=== PATIENT | female | born 1960 | race Caucasian/White ===

== ENCOUNTER 2018-02-18 15:06 | Emergency (ER) | payer OTHER, BC ==
[2018-02-18 15:27] LABS: BASOPHIL (%) 0.3 % (0-1); EOSINOPHIL (%) 1.1 % (0-5); EOSINOPHIL COUNT 0.1 K/uL (0-0.3); HEMATOCRIT 34.5 % (36.0-46.0); HEMOGLOBIN 11.9 G/DL (11.9-15.5); IMMATURE GRANULOCYTE (%) 0.3 % (0.0-0.7); LYMPHOCYTE (%) 32.7 % (15-42); LYMPHOCYTE COUNT 2.4 K/uL (1.0-2.8); MCH 31.2 PG (29.0-34.0); MCHC 34.5 G/DL (30.0-36.0); MCV 90.3 FL (83-99); MONOCYTE (%) 7.5 % (3-12); MONOCYTE COUNT 0.6 K/uL (0-0.8); NEUTROPHIL (%) 58.1 % (45-76); NEUTROPHIL COUNT 4.3 K/uL (1.8-6.4); PLATELET COUNT 275 K/uL (156-360); RBC DIS.WIDTH-CV 12.8 % (11.8-14.6); RBC DIS.WIDTH-SD 42.6 % (39-53); RED BLOOD COUNT 3.82 M/uL (3.80-5.20); WHITE BLOOD COUNT 7.3 K/uL (4.1-10.2)
[2018-02-18 15:37] LABS: AMYLASE 75 IU/L (1-118); CHLORIDE 104 mEq/L (99-109); POTASSIUM 3.5 mEq/L (3.7-5.4); SODIUM 140 mEq/L (136-147)
[2018-02-18 15:39] LABS: GLUCOSE 122 mg/dL (70-99)
[2018-02-18 15:42] LABS: SERUM ETHYL ALCOHOL < 10 mg/dL
[2018-02-18 15:43] LABS: CREATININE 0.8 mg/dL (0.6-1.3); GFR ESTIMATE (CALCULATED) > 59 mL/min/
[2018-02-18 15:44] LABS: UREA NITROGEN (BUN) 17 mg/dL (9-23)
[2018-02-18 15:46] LABS: LIPASE 21 U/L (1.0-51.0)
[2018-02-18 16:26] LABS: TROP-I INTERPRETATION NEGATIVE; TROPONIN-I < 0.01 ng/mL (0.0-0.30)
== END 2018-02-18 17:02 | disposition home or self-care (01) ==
LOC: TRA 15:06
PROVIDERS: Emergency Medicine
PROC: 0HQ1XZZ Repair Face Skin, External Approach (ICD-10-PCS; principal; 2018-02-18)
DX: S01.81XA Laceration without foreign body of other part of head, initial encounter (principal); V47.0XXA Car driver injured in collision with fixed or stationary object in nontraffic accident, initial encounter
CPT/HCPCS: 70450; 71045; 71260; 72125; 72129; 72132; 74177; 80048; 81003; 82150; 83690; 84484; 85025; 86850; 86900; 86901; 93005; 99281; 99285; G0480

== ENCOUNTER 2018-02-23 14:59 | Emergency (ER) | payer OTHER, BC ==
[~2018-02-23] VITALS: Ht 160 cm; Wt 50.6 kg
[2018-02-23 16:32] VITALS: BP 107/77
== END 2018-02-23 16:33 | disposition home or self-care (01) ==
LOC: EME 14:59
DX: S01.81XD Laceration without foreign body of other part of head, subsequent encounter (principal); S00.83XD Contusion of other part of head, subsequent encounter; K21.9 Gastro-esophageal reflux disease without esophagitis
CPT/HCPCS: 99281; 99283